=== PATIENT | female | born 1990 | race Caucasian/White ===

== ENCOUNTER 2020-03-27 10:58 | Day surgery (SDC) | payer OTHER ==
[2020-03-22 12:12] LABS: HEMATOCRIT 39.1 % (36.0-47.0); HEMOGLOBIN 13.3 g/dL (12.0-15.5); MEAN CORPUSCULAR HEMOGLOBIN 28.9 pg (27.0-33.4); MEAN CORPUSCULAR HGB CONC 33.9 g/dL (32.0-36.0); MEAN CORPUSCULAR VOLUME 85 fl (80-97); PLATELET COUNT 250 10^3/uL (150-450); RED CELL DISTRIBUTION WIDTH 12.3 % (11.5-14.0); WHITE BLOOD COUNT 5.8 10^3/uL (4.0-10.5)
[2020-03-22 12:35] LABS: ANION GAP 10 (5-19); BLOOD UREA NITROGEN 19 mg/dL (7-20); CALCIUM 9.2 mg/dL (8.4-10.2); CARBON DIOXIDE 22 mmol/L (22-30); CHLORIDE 106 mmol/L (98-107); GLUCOSE 85 mg/dL (75-110); POTASSIUM 4.2 mmol/L (3.6-5.0)
[~2020-03-27 10:58] MED LIST: CEFAZOLIN 1 GM/D5W RTU 1 GM/50 ML RTUPB IV PRN; LACTATED RINGERS 1000 ML IV PRN
[2020-03-27] MEDS ORDERED: CEFAZOLIN 1 GM/D5W RTU 1 GM/50 ML RTUPB IV ONE (11:32)
[2020-03-27] MEDS ORDERED: KETOROLAC TROMETHAMINE 60 MG/2 ML SDV ONE (11:35)
[2020-03-27] MEDS ORDERED: ONDANSETRON HCL INJ/PF 4 MG/2 ML SDV ONE (11:36)
[2020-03-27] MEDS ORDERED: DEXAMETHASONE SOD PHOSPHATE INJ 4 MG/1 ML VIAL ONE (11:36)
[2020-03-27] MEDS ORDERED: MIDAZOLAM 2 MG/2 ML INJ ONE (11:36)
[2020-03-27] MEDS ORDERED: PROPOFOL INJ 200 MG/20 ML VIAL IV ONE (11:36)
[2020-03-27] MEDS ORDERED: FENTANYL CITRATE INJ/PF 100 MCG/2 ML AMPUL ONE ×2 (11:36→12:55)
[2020-03-27] MEDS ORDERED: BUPIVACAINE HCL 0.25% /EPINEPHRINE INJ/PF 30 ML SDV ONE (11:47)
[2020-03-27] MEDS ORDERED: METHYLENE BLUE 50 MG/10 ML AMPULE ONE (11:59)
[2020-03-27] MEDS ORDERED: ONDANSETRON HCL INJ/PF 4 MG/2 ML SDV IV PRN (12:22)
[2020-03-27] MEDS ORDERED: FENTANYL CITRATE INJ/PF 100 MCG/2 ML AMPUL IV PRN ×2 (12:22)
[2020-03-27] MEDS ORDERED: MEPERIDINE HCL/PF INJ 25 MG/1 ML DISP.SYRIN IV PRN (12:22)
[2020-03-27] MEDS ORDERED: PROMETHAZINE HCL INJ 25 MG/1 ML VIAL IV PRN ×2 (12:22)
[2020-03-27] MEDS ORDERED: MORPHINE SULFATE 10 MG/ML INJ IV PRN (12:22)
[2020-03-27] MEDS ORDERED: OXYCODONE-ACETAMINOPHEN 5-325 MG TABLET PO PRN ×3 (12:22→12:40)
[2020-03-27] MEDS ORDERED: DIPHENHYDRAMINE HCL 50 MG/ML VIAL IV PRN (12:22)
--- NOTE | 2020-03-27 12:36 | Operative Report ---
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 She was then placed up in a high lithotomy position. The rectum and perineum were prepped and draped in usual sterile fashion. With the patient in the high lithotomy position the fistula exit site was at the 2 o'clock position using a rectal fistula probe the tract was probed and went directly into the rectum intersphincteric. I therefore made an incision over the probe incising the skin with the Bovie cautery and identified the rectal sphincters. I did not divide the rectal sphincters. I then passed a red rubber vessel loop underneath the sphincters and tied to itself creating the seton. I examined the rectum using the endoscope and the was normal there was no other evidence of purulent drainage or mucosal abnormalities. The red rubber vessel loop was tied to itself and then also tied with 2-0 silk suture. This completed the procedure patient was then placed back in a supine position. She was awakened in the operating room and transferred recovery in stable condition. ALBA Gilbert was present for the entire procedure for help with wound retraction wound closure.
--- NOTE | 2020-03-27 12:39 | Discharge Summary ---
Discharge Summary (SDC) - Discharge Final Diagnosis: Fistula in ano Date of Surgery: 03/27/20 Discharge Date: 03/27/20 Condition: Good Treatment or Instructions: Patient should do sitz bath with Epsom salts at least twice daily Prescriptions: Hydrocodone/Acetaminophen [[place] 10-325 mg Tablet] 1 tab PO Q6HP PRN #20 tablet PRN Reason: Referrals: ALEJANDRA SCHWARTZ DO [Primary Care Provider] - Discharge Diet: Regular Discharge Activity: Activity As Tolerated Report the Following to Your Physician Immediately: Fever over 101 Degrees, Unusual Bleeding - Needs a follow-up with me in 10 to 14 days
[2020-03-27] MEDS: FENTANYL CITRATE INJ/PF 100 MCG/2 ML AMPUL IV PRN ×4 (12:56→13:11)
[2020-03-27] MEDS ORDERED: ACETAMINOPHEN 1,000 MG/100 ML RTUPB IV ONE (13:24)
[2020-03-27] MEDS ORDERED: OXYCODONE-ACETAMINOPHEN 5-325 MG TABLET ONE (13:53)
[2020-03-27 16:54] VITALS: BP 147/105
[2020-03-27] MEDS ORDERED: SUCCINYLCHOLINE CHLORIDE INJ 200 MG/10 ML VIAL ONE (21:46)
== END 2020-03-27 15:00 | disposition home or self-care (01) ==
LOC: OROUT 10:58
PROVIDERS: ATTEND Surgery
DX: K60.3 Anal fistula (principal); Z03.818 Encounter for observation for suspected exposure to other biological agents ruled out; Z79.3 Long term (current) use of hormonal contraceptives
CPT/HCPCS: 36415; 85027; 87635; 81025; 80048; 46020; J2250; J0690; J1100; J1885; J3010; J0330; J2405; J2704; J0131; Q9968; C9803; J3490